=== PATIENT | male | born 2000 | race Caucasian/White ===

== ENCOUNTER 2024-04-21 17:57 | Inpatient (IN) | payer OTHER ==
--- NOTE | 2024-04-21 19:18 | ED ---
Psych HPI - General Chief Complaint: Psychiatric Symptoms Stated Complaint: Mental Health Time Seen by Provider: 04/21/24 19:18 Source: patient, RN notes reviewed Mode of arrival: ambulatory - History of Present Illness Initial Comments: 24-year-old male with history of depression presents petitioned by police for suicidal ideation. States he has been struggling with depression for many years and has tried many different medications. States he has been "good" for a couple of years but has really been struggling over the past week. States he cut himself on his bilateral arms, thighs, and trunk yesterday after smoking marijuana to try to stop feeling the pain. Patient denies current suicidal intention, however reports the mechanism he would use to end his life would be to apply a mask with gas over his face to suffocate himself. He states he looked online a few days ago for the materials, however did not purchase anything and does not have the materials at home. He was seen by a general practitioner today to discuss depression who advised him to come to the ER immediately to be seen by the mental health team. Patient refused and was driving to chart picker food and go home, and reports he was pulled over by the police as they were searching for his car. He is here today with his parents. Review of Systems ROS Statement: Those systems with pertinent positive or pertinent negative responses have been documented in the HPI. ROS Other: All systems not noted in ROS Statement are negative. Past Medical History Past Medical History: Asthma Past Surgical History: No Surgical Hx Reported Past Psychological History: ADD/ADHD, Depression Smoking Status: Current some day smoker, Light tobacco smoker Past Alcohol Use History: Occasional Past Drug Use History: Marijuana General Exam Limitations: no limitations General appearance: alert, in no apparent distress Head exam: Present: atraumatic, normocephalic, normal inspection Eye exam: Present: normal appearance, PERRL, EOMI. Absent: scleral icterus, conjunctival injection, periorbital swelling ENT exam: Present: normal exam, mucous membranes moist Extremities exam: Present: full ROM, normal capillary refill. Absent: normal inspection (Superficial cuts present over bilateral forearms, hips, back, and thighs. No active bleeding or sign of infection), tenderness, pedal edema, joint swelling, calf tenderness Course Vital Signs 04/21/24 18:29 Temperature 98.8 F Pulse Rate 69 Respiratory 18 Rate Blood Pressure 141/89 O2 Sat by Pulse 98 Oximetry Medical Decision Making - Medical Decision Making Was pt. sent in by a medical professional or institution (WALE Metzger, RIGGER APPRENTICE, urgent care, hospital, or detention...) When possible be specific @ -Patient petitioned by police department, sent from PCP today for SI Did you speak to anyone other than the patient for history (EMS, parent, family, police, friend...)? What history was obtained from this source @ -No Did you review nursing and triage notes (agree or disagree)? Why? @ -I reviewed and agree with nursing and triage notes Were old charts reviewed (outside hosp., previous admission, EMS record, old EKG, old radiological studies, urgent care reports/EKG's, detention records)? Report findings @ -No old charts were reviewed Differential Diagnosis (chest pain, altered mental status, abdominal pain women, abdominal pain men, vaginal bleeding, weakness, fever, dyspnea, syncope, headache, dizziness, GI bleed, back pain, seizure, CVA, palpatations, mental health, musculoskeletal)? @ -Differential Mental Health Depression, anxiety, bipolar, psychosis, schizophrenia, borderline personality, situational depression, adjustment disorder, behavioral disorder, brain tumor, malingering, substance abuse, encephalopathy, medication reaction, dementia, hypothyroidism, degenerative neurologic disorder, lupus.... This is not meant to be all-inclusive list EKG interpreted by me (3pts min.). @ -None X-rays interpreted by me (1pt min.). @ -None done CT interpreted by me (1pt min.). @ -None done U/S interpreted by me (1pt. min.). @ -None done What testing was considered but not performed or refused? (CT, X-rays, U/S, labs)? Why? @ -None What meds were considered but not given or refused? Why? @ -None Did you discuss the management of the patient with other professionals (professionals i.e. WALE Metzger, RIGGER APPRENTICE, lab, RT, psych nurse, social media developer, immigration lawyer, teacher, [place] police officer, classification case manager)? Give summary @ -EPS recommends inpatient admission for suicidal ideation, I agree with this plan. Was smoking cessation discussed for >3mins.? @ -No Was critical care preformed (if so, how long)? @ -No Were there social determinants of health that impacted care today? How? (Homelessness, low income, unemployed, alcoholism, drug addiction, transportation, low edu. Level, literacy, decrease access to med. care, [facility], rehab)? @ -No Was there de-escalation of care discussed even if they declined (Discuss DNR or withdrawal of care, Hospice)? DNR status @ -No What co-morbidities impacted this encounter? (DM, HTN, Smoking, COPD, CAD, Ca ncer, CVA, ARF, Chemo, Hep., AIDS, mental health diagnosis, sleep apnea, morbid obesity)? @ -None Was patient admitted / discharged? Hospital course, mention meds given and route, prescriptions, significant lab abnormalities, going to OR and other pertinent info. @ -Admitted. 24-year-old male with history of depression and anxiety presenting petitioned by police department for suicidal ideation. Patient cut himself yesterday in bilateral arms, trunk, and legs in an attempt to escape the pain. No lacerations requiring sutures or signs of bacterial infection at this time. He denies current suicidal ideation, however reports if he were to commit suicide he would suffocate himself with a gas mask. He states he was searching online for materials a few days ago, however reports purchasing the materials. EPS recommends inpatient admission for suicidal ideation and I agree with this plan of care. Case was discussed with my ED attending Dr. Marie. Undiagnosed new problem with uncertain prognosis? @ -No Drug Therapy requiring intensive monitoring for toxicity (Heparin, Nitro, Insulin, Cardizem)? @ -No Were any procedures done? @ -No Diagnosis/symptom? @ -Suicidal ideation Acute, or Chronic, or Acute on Chronic? @ -Acute Uncomplicated (without systemic symptoms) or Complicated (systemic symptoms)? @ -Complicated Side effects of treatment? @ -No Exacerbation, Progression, or Severe Exacerbation? @ -No Poses a threat to life or bodily function? How? (Chest pain, USA, LA, pneumonia, PE, COPD, DKA, ARF, appy, cholecystitis, CVA, Diverticulitis, Homicidal, Suicidal, threat to staff... and all critical care pts) @ -Yes, suicidal - Lab Data Lab Results 04/21/24 Range/Units 19:20 Urine Opiates Screen Not Detected (NotDetected) Ur Oxycodone Screen Not Detected (NotDetected) Urine Methadone Screen Not Detected (NotDetected) Ur Barbiturates Screen Not Detected (NotDetected) U Tricyclic Antidepress Not Detected (NotDetected) Ur Phencyclidine Scrn Not Detected (NotDetected) Ur Amphetamines Screen Not Detected (NotDetected) U Methamphetamines Scrn Not Detected (NotDetected) U Benzodiazepines Scrn Not Detected (NotDetected) Urine Cocaine Screen Not Detected (NotDetected) U Marijuana (THC) Screen Detected H (NotDetected) Disposition Clinical Impression: Suicidal ideation Disposition: ADMITTED IP TO THIS HOSP Referrals: None,Stated [Primary Care Provider] - 1-2 days Time of Disposition: 23:50
[2024-04-21 20:17] LABS: Amphetamine Screen,Urine Not Detected (NotDetected); Barbiturate Screen,Urine Not Detected (NotDetected); Benzodiazepines Screen,Urine Not Detected (NotDetected); Cocaine Screen,Urine Not Detected (NotDetected); Methadone Screen, Urine Not Detected (NotDetected); Opiate Screen,Urine Not Detected (NotDetected); Oxycodone Screen, Urine Not Detected (NotDetected); Phencyclidine Screen,Urine Not Detected (NotDetected); Tricyclic Antidepressant,Urine Not Detected (NotDetected); Urn Cannabinoid Scrn Detected (NotDetected)
[2024-04-22] MEDS: LORazepam 1 MG TAB PO STA (01:28)
[2024-04-22] MEDS ORDERED: MAG HYDROX/AL HYDROX/SIMETH 355 ML BOTTLE PO PRN (03:23)
[2024-04-22] MEDS ORDERED: MAGNESIUM HYDROXIDE 2,400 MG/30 ML CUP PO PRN (03:23)
[2024-04-22] MEDS ORDERED: HALOPERIDOL LACTATE 5 MG/ML 1 ML VIAL IM PRN (03:23)
[2024-04-22] MEDS ORDERED: ACETAMINOPHEN TAB 325 MG TAB PO PRN (03:23)
[2024-04-22] MEDS ORDERED: LORazepam 2 MG/ML INJ IM PRN (03:23)
[2024-04-22] MEDS ORDERED: IBUPROFEN 600 MG TAB PO PRN (03:23)
[2024-04-22 05:30] LABS: Appearance,Urine Cloudy (Clear); Bacteria,Urine Rare /hpf; Bilirubin,Urine Negative (Negative); Blood,Urine Negative (Negative); Calcium Oxalate Crystals,Urine Many /hpf; Color,Urine Yellow; Glucose,Urine (UA) Negative (Negative); Ketones,Urine 2+ (Negative); Leukocyte Esterase,Urine Negative (Negative); Mucus,Urine Few /hpf; Nitrite,Urine Negative (Negative); Protein,Urine Trace (Negative); RBC,Urine 2 /hpf (0-5); Specific Gravity,Urine 1.035 (1.001-1.035); Urobilinogen,Urine <2.0 mg/dL (<2.0); WBC,Urine 2 /hpf (0-5)
[2024-04-22] MEDS: LORazepam 1 MG TAB PO PRN (08:58)
[2024-04-22] MEDS: NICOTINE 14MG/24HR PATCH TRANSDERM SCH (08:59)
--- NOTE | 2024-04-22 16:34 | P.HP ---
Psychiatric H&P - . H&P Date: 04/22/24 History & Physical: Allergies Allergy/AdvReac Type Severity Reaction Status Date / Time Terry Seed Allergy Mild Swelling Unverified 04/22/24 05:02 Vital Signs Temp 98.3 F 04/22/24 04:53 Pulse 66 04/22/24 04:53 Resp 14 04/22/24 04:53 BP 132/77 04/22/24 04:53 Pulse Ox 97 04/22/24 04:53 FiO2 Intake & Output 04/21/24 04/22/24 04/22/24 18:59 06:59 18:59 Weight 81.647 kg 79.605 kg Laboratory Last Values Urine Color Yellow 04/21/24 19:20 Urine Appearance Cloudy (Clear) 04/21/24 19:20 Urine pH 6.0 (5.0-8.0) 04/21/24 19:20 Ur Specific [place] 1.035 (1.001-1.035) 04/21/24 19:20 Urine Protein Trace (Negative) H 04/21/24 19:20 Urine Glucose (UA) Negative (Negative) 04/21/24 19:20 Urine Ketones 2+ (Negative) H 04/21/24 19:20 Urine Blood Negative (Negative) 04/21/24 19:20 Urine Nitrite Negative (Negative) 04/21/24 19:20 Urine Bilirubin Negative (Negative) 04/21/24 19:20 Urine Urobilinogen <2.0 mg/dL (<2.0) 04/21/24 19:20 Ur Leukocyte Esterase Negative (Negative) 04/21/24 19:20 Urine RBC 2 /hpf (0-5) 04/21/24 19:20 Urine WBC 2 /hpf (0-5) 04/21/24 19:20 Calcium Oxalate Crystal Many /hpf (None) H 04/21/24 19:20 Urine Bacteria Rare /hpf (None) H 04/21/24 19:20 Urine Mucus Few /hpf (None) H 04/21/24 19:20 Urine Opiates Screen Not Detected (NotDetected) 04/21/24 19:20 Ur Oxycodone Screen Not Detected (NotDetected) 04/21/24 19:20 Urine Methadone Screen Not Detected (NotDetected) 04/21/24 19:20 Ur Barbiturates Screen Not Detected (NotDetected) 04/21/24 19:20 U Tricyclic Antidepress Not Detected (NotDetected) 04/21/24 19:20 Ur Phencyclidine Scrn Not Detected (NotDetected) 04/21/24 19:20 Ur Amphetamines Screen Not Detected (NotDetected) 04/21/24 19:20 U Methamphetamines Scrn Not Detected (NotDetected) 04/21/24 19:20 U Benzodiazepines Scrn Not Detected (NotDetected) 04/21/24 19:20 Urine Cocaine Screen Not Detected (NotDetected) 04/21/24 19:20 U Marijuana (THC) Screen Detected (NotDetected) H 04/21/24 19:20 SARS-CoV-2 (PCR) Not Detected (Not Detectd) 04/21/24 23:09 04/22/24 07:35 the report from the emergency room is: 24-year-old male with history of depression presents petitioned by police for suicidal ideation. States he has been struggling with depression for many years and has tried many different medications. States he has been "good" for a couple of years but has really been struggling over the past week. States he cut himself on his bilateral arms, thighs, and trunk yesterday after smoking marijuana to try to stop feeling the pain. Patient denies current suicidal intention, however reports the mechanism he would use to end his life would be to apply a mask with gas over his face to suffocate himself. He states he looked online a few days ago for the materials, however did not purchase anything and does not have the materials at home. He was seen by a general practitioner today to discuss depression who advised him to come to the ER immediately to be seen by the mental health team. Patient refused and was driving to cotton picker food and go home, and reports he was pulled over by the police as they were searching for his car. He is here today with his parents. History of present illness: The patient says the reason he is cutting on himself is that he had a lot of internal pain emotionally and he thought that would give him relief. He had heard that other people found relief from cutting so he was goingto give cutting A try. He said he was not trying to build up to killing himsel or hurting himself because he thought he was worthless. Past history: The patient has tried different medications interestingly the serotonin reuptake inhibitors backfired and made his moods worse. He was tried on Zoloft and Effexor recently was started on Wellbutrin 100 twice a day and was rather positive about however he and his girlfriend of 7 years broke up recently and he is doing okay when also any got hit with terrible depression and tearfulness he just sat in his car and sobbed for over an hour and then went home and felt a little bit better. In the past he has been treated for ADHD with Ritalin 10 mg twice a day he was also on Focalin and made him over focus I didn't like that can remember taking any other medications Social history the patient is the youngest of 2 boys born to his parents and his older brother struggles with anxiety and anger problems and takes Klonopin constantly his parents only stayed together briefly when about 4 they broke up mom remarried when he was 5 mom is struggled with bipolar disorder maternal grandfather had a lot of moods and depression is not sure was wrong with dad figure something was wrong personality development were normal in school he was valedictorian in high school and is currently going to college in [employer] denies any experience Legal none He lives with his parents Is not real stable on his jobs he does work at a car wash currently Substance use patient does not use much alcohol but he does smoke heroin on a daily basis says it calms him down On mental status exam the patient was alert and cooperative looks a little bit wild quick response times increased psychomotor activity slight pressure to his speech no aggression no psychotic symptoms seen her acknowledged depressed to be above average intelligence but has trouble raining it in and concentrating for example when asked him to subtract 7 from 93 he got several different numbers and kept jumping around for the grass looks screen and outside offense he got stuck on the situation eventually moved on to the application and said investigate things before you act which is unique and a rather intelligent response when asked to abstract O cats and snakes were alike he did well saying antibodies that he is to have things and they are mysterious. He couldn't name all the [place] but had no clue that [place] and [place] connected thought it might be some sort of canal he could remember 3 of 3 objects after 3 minutes he could only remember the last 3 presidents but no both her first and last names denies any psychotic symptoms no hallucinations or delusions denies active suicidality and was focused on when do I get to go home. Assessment: The patient fluctuates between there has to be some answer to all this misery and I'm perfectly fine everything's okay making it hard to assess whether he is an active danger to self or others he says that he and his mother have examined the possibility of bipolar don't think it's there I think he has been covering up his bipolar with marijuana and that is fairly mild case and he has had 1 or 2 manic episodes. Diagnosis: Bipolar 2 mixed Plan continue the Wellbutrin as that makes sense and at the low dose is not agg ravating the mood swings was also notblocking the sudden mood swings. I think we should add oxcarbazepine to the Wellbutrin. I don't think he'll need to be here that long. 04/22/24 16:25
[2024-04-22] MEDS: haloperidoL 5 MG TAB PO PRN (17:30)
[2024-04-22] MEDS: OXcarbazepine 300 MG TAB PO SCH (22:00)
[2024-04-22] MEDS: buPROPion SR 100 MG TABLET.ER PO SCH (22:00)
--- NOTE | 2024-04-23 00:06 | P.PN ---
Progress Note - Text Progress Note Date: 04/23/24 patient refused to get out of his bed for evaluation, he shares a room with another resident
[2024-04-23 07:48] LABS: Basophils % (A) 1 %; Eosinophils # (A) 0.1 k/uL (0-0.7); Eosinophils % (A) 3 %; HCT 47.5 % (39.0-53.0); HGB 16.3 gm/dL (13.0-17.5); Lymphocytes # (A) 2.2 k/uL (1.0-4.8); Lymphocytes % (A) 39 %; MCHC 34.3 g/dL (31.0-37.0); MCV 93.2 fL (80.0-100.0); Mean Platelet Volume 7.4; Monocytes # (A) 0.5 k/uL (0-1.0); Monocytes % (A) 9 %; Neutrophils # (A) 2.6 k/uL (1.3-7.7); Neutrophils % (A) 47 %; Platelet Count 322 k/uL (150-450); RBC 5.09 m/uL (4.30-5.90); RDW 13.4 % (11.5-15.5); WBC 5.7 k/uL (3.8-10.6)
[2024-04-23 08:08] LABS: ALT 29 U/L (4-49); AST 20 U/L (17-59); African American GFR (CKD) >90 (>60 ml/min/1.73 sqM); Albumin 4.5 g/dL (3.5-5.0); Alkaline Phosphatase 51 U/L (38-126); Anion Gap 7 mmol/L; Bilirubin, Delta 0.2 mg/dL (0.0-0.2); Bilirubin,Unconjugated 0.5 mg/dL (0.0-1.1); Blood Urea Nitrogen 17 mg/dL (9-20); Calcium 9.9 mg/dL (8.4-10.2); Carbon Dioxide 26 mmol/L (22-30); Chloride 107 mmol/L (98-107); Glucose 108 mg/dL (74-99); Non-African American GFR(CKD) >90 (>60 ml/min/1.73 sqM); Potassium 4.3 mmol/L (3.5-5.1); Sodium 140 mmol/L (137-145); Total Bilirubin 0.7 mg/dL (0.2-1.3); Total Protein 7.1 g/dL (6.3-8.2)
--- NOTE | 2024-04-23 11:32 | P.PN ---
Subjective Progress Note Date: 04/23/24 Principal diagnosis: bipolar mixed History of present illness: patient came readily to see me even though he was lying in his bed feeling a little time. Has good sense of humor is cooperative.The patient says the reason he is cutting on himself is that he had a lot of internal pain emotionally and he thought that would give him relief. He had heard that other people found relief from cutting so he was goingto give cutting A try. He said he was not trying to build up to killing himsel or hurting himself because he thought he was worthless. Past history: The patient has tried different medications interestingly the serotonin reuptake inhibitors backfired and made his moods worse. He was tried on Zoloft and Effexor recently was started on Wellbutrin 100 twice a day and was rather positive about however he and his girlfriend of 7 years broke up recently and he is doing okay when also any got hit with terrible depression and tearfulness he just sat in his car and sobbed for over an hour and then went home and felt a little bit better. In the past he has been treated for ADHD with Ritalin 10 mg twice a day he was also on Focalin and made him over focus I didn't like that can remember taking any other medications Substance use patient does not use much alcohol but he does smoke heroin on a daily basis says it calms him down On mental status exam: He seems a little calmer than yesterday by the patient was alert and cooperative, quick response times, increased psychomotor activity slight pressure to his speech no aggression no psychotic symptoms denies any psychotic symptoms no hallucinations or delusions denies active suicidality and was focused on when do I get to go home. Assessment: not insightful not really committed to dealing with his problem but did tolerate the medicine and take it and sleep well last night however found him in his room resident participating in the community and he still focused on, " so out of I get out of here." Diagnosis: Bipolar 2 mixed Plan continue the Wellbutrin and he needs to take the oxcarbazepine at 300 twice a day for a week and then bump it up to 600 mgtwice a day Objective - Vital Signs Vital signs: Vital Signs Temp 98.3 F 04/22/24 04:53 Pulse 66 04/22/24 04:53 Resp 14 04/22/24 04:53 BP 132/77 04/22/24 04:53 Pulse Ox 97 04/22/24 04:53 FiO2 - Labs CBC & Chem 7: 04/23/24 07:29 04/23/24 07:29 Labs: Abnormal Lab Results - Last 24 Hours (Table) 04/23/24 Range/Units 07:29 Glucose 108 H (74-99) mg/dL
[2024-04-23 12:39] LABS: Chol/HDL Ratio 4.42 Ratio; LDL Cholesterol,Calculated 103.9 mg/dL (0.0-131.0)
--- NOTE | 2024-04-24 12:51 | P.PN ---
Progress Note - Text Progress Note Date: 04/24/24 Interval History: Patient was seen laying in bed and was directable and agreeable to speak with literary writer in his room. He reports feeling "better" today however he is struggling with not being on his Ritalin during this hospitalization, reporting feeling tired throughout the day. He states being hospitalized due to a break-up with his soon-to-be fierick however he has been in communication with her since being here and states that they are rekindling things. He states moving here from the [place] after the break-up and has been staying with his parents. He wishes to return home with them once discharged. He is happy to be started on Trileptal as he feels like his mood is already stable from this addition and he feels close to his baseline. At this time patient denies any suicidal or homicidal ideations, intent or plan. Patient denies any auditory, visual hallucinations and denies any paranoia or delusions. Patient denies any side effects from the medications and has been compliant with meds. Mental Status Exam: General Appearance: Patient appears to be stated age is alert, directable, and cooperative. Behavior: Patient is calmly laying without any agitated behavior. Speech: Patient's speech is fluent and fast rate Mood/Affect: Mood is improving mildly, affect is congruent and full range. Suicidality/Homicidality: Patient denies having any suicidal or homicidal ideation intent or plan. Perceptions: Patient denies any visual hallucinations and denies any auditory h allucinations Though content/process: There is no evidence of any delusional thought content and thought process is linear and goal-directed. Memory and concentration: AOX3, grossly intact for the purposes of this session Judgment and insight: Improving mildly Assessment Bipolar 2 disorder, current episode depressed Continue dependence Cannabis use disorder ADHD per history Plan: -Patient continues to meet criteria for inpatient psychiatric admission for symptom stabilization and safety. Patient has signed adult voluntary form and medication consent and was placed in patient's chart. -Medications: Continue Wellbutrin SR 100 mg twice daily for depression, Trileptal 300 mg twice daily for mood stabilization -When necessary Ativan and Haldol for agitation/aggression. -Labs: Reviewed -NRT -nicotine patch -SW on board for discharge planning. Encouraged the patient to participate in milieu. Anticipate discharge home with parents tomorrow, will do a safety assessment prior to discharge
[2024-04-24] MEDS: traZODone HCL 50 MG TAB PO PRN (20:30)
[2024-04-25 06:54] VITALS: BP 106/68; PULSE 96; RESP 16; TEMP 97.8
--- NOTE | 2024-04-25 13:30 | P.DS ---
Providers Date of admission: 04/22/24 03:05 Expected date of discharge: 04/25/24 Attending physician: Rosa Rinaldi MD Consults: 04/22/24 03:23 Consult Physician Routine Consulting Provider: Christian Jordan Consult Reason/Comments: For H & P for Medical Follow Up Do you want consulting provider notified?: Yes Primary care physician: Stated None - Discharge Diagnosis(es) (1) Bipolar II disorder, most recent episode major depressive Status: Acute Priority: High (2) Nicotine dependence Status: Acute Priority: Low (3) Cannabis use disorder Status: Acute Priority: Low (4) ADHD Status: Acute Priority: Low Hospital Course: Admission HPI: Admission note was completed by Dr. Thacker "the report from the emergency room is: 24-year-old male with history of depression presents petitioned by police for suicidal ideation. States he has been struggling with depression for many years and has tried many different medications. States he has been "good" for a couple of years but has really been struggling over the past week. States he cut himself on his bilateral arms, thighs, and trunk yesterday after smoking marijuana to try to stop feeling the pain. Patient denies current suicidal intention, however reports the mechanism he would use to end his life would be to apply a mask with gas over his face to suffocate himself. He states he looked online a few days ago for the materials, however did not purchase anything and does not have the materials at home. He was seen by a general practitioner today to discuss depression who advised him to come to the ER immediately to be seen by the mental health team. Patient refused and was driving to merchandise pickup/receiving associate food and go home, and reports he was pulled over by the police as they were searching for his car. He is here today with his parents. History of present illness: The patient says the reason he is cutting on himself is that he had a lot of internal pain emotionally and he thought that would give him relief. He had heard that other people found relief from cutting so he was goingto give cutting A try. He said he was not trying to build up to killing himsel or hurting himself because he thought he was worthless." Hospital course: Upon admission to the unit patient was directable and agreeable to commence treatment and signed adult voluntary form. Patient got along well with other patients on the unit and followed unit protocol. Patient was compliant with the medications and denied any side effects throughout hospital course. Patient was started on Trileptal and this was increased to 300 mg twice daily for mood stabilization and he was continued on his Wellbutrin SR 100 mg twice daily for depression. Patient spoke of his stressors and engaged in therapy both group and individual. Patient was also seen by medical team for history and physical exam. Throughout the course of the hospitalization patient gradually improved with regards to mood, anxiety, sleep and he became more future oriented with improved insight and judgment. On the day of discharge patient denied any suicidal or homicidal ideations intent or plan denied any auditory or visual hallucinations. The patient denied any access to guns or weapons. Patient denied any paranoia and did not endorse any delusions. Patient does not have a significant history of substance abuse and was counseled on abstaining from all substances including alcohol and marijuana. Patient was also counseled on the medications and need for regular compliance and was encouraged to follow-up with their outpatient appointment for mental health and also for primary care. Prior to discharge a family meeting will be arranged by mental health social worker to answer any questions and ensure safety upon discharge incuding making sure that guns/weapons are either removed from the home or locked away. Mental status exam: General Appearance: Patient appears to be stated age is alert, pleasant, and cooperative. Patient is in no acute distress and has improved hygiene and grooming Behavior: Patient is calmly seated without any agitated behavior. Speech: Patient's speech is fluent and nonpressured. Mood/Affect: Patient reports their mood is "good", affect is congruent and euthymic. Suicidality/Homicidality: Patient denies having any suicidal or homicidal ideation intent or plan. Perceptions: Patient denies any auditory or visual hallucinations. Though content/process: There is no evidence of any delusional thought content and thought process is linear and goal-directed. More future oriented Memory and concentration: AOX3, grossly intact for the purposes of this session. Can spell "WORLD" backwards correctly. Judgment and insight: Fair Impression: Bipolar 2 disorder, most recent episode depressed Nicotine dependence Cannabis use disorder ADHD per history Plan: -Continue with discharge today as patient has improved and stabilized psychiatrically and is not currently an imminent threat to themself and/or others. -Continue medications: Wellbutrin SR 100 mg twice daily and Trileptal 300 mg twice daily -Patient was counseled on the need for medication compliance and appropriate follow-up at mental health and also primary care for medical issues. Patient verbalized understanding and agreed. -Social work to help coordinate patients discharge today arrange for and conduct family meeting to ensure safety upon discharge and answer any questions/concerns. also to ensure safe home environment that guns/weapons are either removed from the home or locked away. Social work also to arrange for patients follow up appointments with [facility] for psychiatric care along with follow up with primary care provider. -Patient counseled on abstaining from recreational drugs and marijuana and alcohol. Was informed/educated on the adverse effects on their physical and mental health. Patient verbally agreed and understood. -Patient was instructed to return to the hospital or seek immediate medical care if their psychiatric or medical symptoms do worsen or reoccur. Abnormal Labs 04/21/24 04/21/24 04/23/24 19:20 19:20 07:29 Glucose 108 H HDL Cholesterol 37.10 L Urine Protein Trace H Urine Ketones 2+ H Calcium Oxalate Crystal Many H Urine Bacteria Rare H Urine Mucus Few H U Marijuana (THC) Screen Detected H Vital Signs Temp 97.8 F 04/25/24 06:34 Pulse 96 04/25/24 06:34 Resp 16 04/25/24 06:34 BP 106/68 04/25/24 06:34 Pulse Ox 98 04/25/24 06:34 FiO2 Allergies Allergy/AdvReac Type Severity Reaction Status Date / Time [place] Allergy Mild Swelling Unverified 04/22/24 16:29 Patient Condition at Discharge: Stable Plan - Discharge Summary Discharge Rx Participant: Yes New Discharge Prescriptions: New RX: traZODone HCL [Desyrel] 50 mg PO HS PRN 15 Days #15 tab PRN Reason: Insomnia RX: OXcarbazepine [Trileptal] 300 mg PO BID 30 Days #60 tab RX: buPROPion SR [Wellbutrin SR] 100 mg PO BID 30 Days #60 tab Discharge Medication List RX: OXcarbazepine [Trileptal] 300 mg PO BID 30 Days #60 tab 04/25/24 [Rx] RX: buPROPion SR [Wellbutrin SR] 100 mg PO BID 30 Days #60 tab 04/25/24 [Rx] RX: traZODone HCL [Desyrel] 50 mg PO HS PRN 15 Days #15 tab 04/25/24 [Rx] Follow up Appointment(s)/Referral(s): [facility] [Outside] - 04/26/24 3:00 pm ([place]) [facility] [[facility]-STAFF] - 1 Week Patient Instructions/Handouts: Bipolar Disorder (DC), Depression (DC), Suicide Prevention (DC) Activity/Diet/Wound Care/Special Instructions: Avoid the use of street drugs and alcohol. Take all medications as prescribed. When you are in need of refills on your medications, please contact your medical provider and/or outpatient psychiatrist/provider to have this done. Please go to your scheduled outpatient appointment for aftercare treatment. If symptoms return or become worse, call the crisis line at and/or go to the nearest emergency room for evaluation. National Suicide Hotline [address] [facility] confidentiality statement: "The information contained in this communication, including attachments, is confidential, may be privileged, and is intended only for the use of the named recipient(s). Unauthorized use, disclosure, forwarding or copying is strictly prohibited and may be unlawful. If you have received this communication in error, please notify me IMMEDIATELY at the phone number or pager listed above. Discharge Disposition: HOME SELF-CARE
== END 2024-04-25 13:00 | disposition home or self-care (01) | DRG 753 ==
LOC: EC 17:57 → 3MHU 04-22 03:05
PROVIDERS: ADMIT Psychiatry & Neurology Psychiatry; ATTEND Psychiatry & Neurology Psychiatry
DX: F31.81 Bipolar II disorder (principal); F90.9 Attention-deficit hyperactivity disorder, unspecified type; F41.9 Anxiety disorder, unspecified; F31.60 Bipolar disorder, current episode mixed, unspecified; R45.851 Suicidal ideations; Z79.899 Other long term (current) drug therapy; F17.200 Nicotine dependence, unspecified, uncomplicated; J45.909 Unspecified asthma, uncomplicated; F12.10 Cannabis abuse, uncomplicated; R82.4 Acetonuria
CPT/HCPCS: 80053; 80061; 80306; 81001; 82075; 82248; 83036; 84443; 85025; 87635; 99285